=== PATIENT | male | born 1960 | race Caucasian/White ===

== ENCOUNTER → 2017-10-04 | Outpatient (CLI) | payer OTHER ==
--- NOTE | 2017-10-04 11:21 | XR ---
Left knee HISTORY: Left knee pain, trauma 3 views of the left knee Bone mineralization, joint spaces and alignment are maintained, exception of some mild joint space lo ss medial compartment. No fracture or dislocation. Mild marginal spurring medial compartment. Suprapa tellar increased density compatible joint effusion. IMPRESSION: Suspect mild osteoarthritis. Joint effusion. Consider knee MRI.
== END | disposition home or self-care (01) ==
LOC: RADXRMAIN 10:59
PROVIDERS: ATTEND Emergency Medicine
DX: M25.462 Effusion, left knee (principal)

== ENCOUNTER 2024-05-24 15:24 | Emergency (ER) | payer MEDICARE ==
--- NOTE | 2024-05-24 15:49 | ED ---
Wound/Laceration HPI - General Chief Complaint: Wound/Laceration Stated Complaint: R hand lac Time Seen by Provider: 05/24/24 15:41 Source: patient, RN notes reviewed Mode of arrival: ambulatory Limitations: no limitations - History of Present Illness Initial Comments: This is a 63-year-old male presenting for cut on right index finger x 20 minutes ago. Patient states he was working with a miter saw when he accidentally cut the back of his left index finger. States he wrapped finger and came immediately to ER. Denies other injury. States tetanus vaccination status is not up-to-date. Denies use of blood thinners. Onset/Timin -: minutes(s) Extremity Location: Right: Hand Place: home Patient Tetanus UTD: No Context: accidental, power tool use Associated Symptoms: pain - Related Data Previous Rx's Medication Instructions Recorded Cephalexin [Keflex] 500 mg PO Q6HR 1 Days #20 cap 05/24/24 Ibuprofen [Motrin] 800 mg PO Q8H PRN #30 tab 05/24/24 Mupirocin Calcium 2% Cream 1 applic TOPICAL TID #15 gm 05/24/24 [Bactroban Cream] Allergies Allergy/AdvReac Type Severity Reaction Status Date / Time No Known Allergies Allergy Verified 05/24/24 15:28 Review of Systems ROS Statement: Those systems with pertinent positive or pertinent negative responses have been documented in the HPI. ROS Other: All systems not noted in ROS Statement are negative. Past Medical History Past Medical History: No Reported History History of Any Multi-Drug Resistant Organisms: None Reported Past Surgical History: No Surgical Hx Reported Past Psychological History: No Psychological Hx Reported Smoking Status: Never smoker Past Alcohol Use History: Occasional Past Drug Use History: None Reported General Exam Limitations: no limitations General appearance: alert, in no apparent distress Head exam: Present: atraumatic, normocephalic, normal inspection Eye exam: Present: normal appearance, PERRL, EOMI. Absent: scleral icterus, conjunctival injection, periorbital swelling ENT exam: Present: normal exam, mucous membranes moist Neck exam: Present: normal inspection. Absent: tenderness, meningismus, lymphadenopathy Respiratory exam: Present: normal lung sounds bilaterally. Absent: respiratory distress, wheezes, rales, rhonchi, stridor Cardiovascular Exam: Present: regular rate, normal rhythm, normal heart sounds. Absent: systolic murmur, diastolic murmur, rubs, gallop, clicks GI/Abdominal exam: Present: soft, normal bowel sounds. Absent: distended, tenderness, guarding, rebound, rigid Extremities exam: Present: normal inspection, full ROM, normal capillary refill. Absent: tenderness, pedal edema, joint swelling, calf tenderness Right Shoulder Exam: Present: normal inspection, full ROM Upper Arm exam: Present: normal inspection, full ROM Elbow exam: Present: normal inspection, full ROM Forearm Wrist exam: Present: normal inspection, full ROM Hand Wrist exam: Present: full ROM, tenderness, laceration (7 cm deep vertical laceration of right index finger from MCP joint to PIP joint. No obvious foreign body. Neurovascular intact, capillary refill less than 2 seconds.) Vascular: Present: normal capillary refill Back exam: Present: normal inspection Neurological exam: Present: alert, oriented X3, CN II-XII intact Psychiatric exam: Present: normal affect, normal mood Skin exam: Present: warm, dry, intact, normal color. Absent: rash Course Vital Signs 05/24/24 15:25 Temperature 97.9 F Pulse Rate 67 Respiratory 20 Rate Blood Pressure 175/91 O2 Sat by Pulse 98 Oximetry Medical Decision Making - Medical Decision Making Was pt. sent in by a medical professional or institution (, PA, RESEARCH ADVISOR, urgent care, hospital, or alf...) When possible be specific @ -[No] Did you speak to anyone other than the patient for history (EMS, parent, family, police, friend...)? What history was obtained from this source @ -[No] Did you review nursing and triage notes (agree or disagree)? Why? @ -[I reviewed and agree with nursing and triage notes] Were old charts reviewed (outside hosp., previous admission, EMS record, old EKG, old radiological studies, urgent care reports/EKG's, alf records)? Report findings @ -[No old charts were reviewed] Differential Diagnosis (chest pain, altered mental status, abdominal pain women, abdominal pain men, vaginal bleeding, weakness, fever, dyspnea, syncope, headache, dizziness, GI bleed, back pain, seizure, CVA, palpatations, mental health, musculoskeletal)? @ -Differential Musculoskeletal Muscular strain, contusion, ligament sprain, fracture, arthritis, septic arthritis, bursitis, cellulitis, muscle spasm, nerve compression, DVT, arterial occlusion, herpes zoster, electrolyte abnormality, tumor.... This is not meant to be in all inclusive list EKG interpreted by me (3pts min.). @ -Not done X-rays interpreted by me (1pt min.). @ -[None done] CT interpreted by me (1pt min.). @ -[None done] U/S interpreted by me (1pt. min.). @ -[None done] What testing was considered but not performed or refused? (CT, X-rays, U/S, labs)? Why? @ -[None] What meds were considered but not given or refused? Why? @ -[None] Did you discuss the management of the patient with other professionals (professionals i.e. , PA, RESEARCH ADVISOR, lab, RT, psych nurse, social media senior associate, aircraft refueler, teacher, youth liaison officer, shelter case manager)? Give summary @ -[No] Was smoking cessation discussed for >3mins.? @ -[No] Was critical care preformed (if so, how long)? @ -[No] Were there social determinants of health that impacted care today? How? (Homelessness, low income, unemployed, alcoholism, drug addiction, transportation, low edu. Level, literacy, decrease access to med. care, correction, rehab)? @ -[No] Was there de-escalation of care discussed even if they declined (Discuss DNR or withdrawal of care, Hospice)? DNR status @ -[No] What co-morbidities impacted this encounter? (DM, HTN, Smoking, COPD, CAD, Cancer, CVA, ARF, Chemo, Hep., AIDS, mental health diagnosis, sleep apnea, morbid obesity)? @ -[None] Was patient admitted / discharged? Hospital course, mention meds given and route, prescriptions, significant lab abnormalities, going to OR and other pertinent info. @ -[hospital course] Undiagnosed new problem with uncertain prognosis? @ -[No] Drug Therapy requiring intensive monitoring for toxicity (Heparin, Nitro, Insulin, Cardizem)? @ -[No] Were any procedures done? @ -Suture of right index finger laceration under sterile conditions Diagnosis/symptom? @ -[default] Acute, or Chronic, or Acute on Chronic? @ -Acute Uncomplicated (without systemic symptoms) or Complicated (systemic symptoms)? @ -Uncomplicated Side effects of treatment? @ -[No] Exacerbation, Progression, or Severe Exacerbation? @ -[No] Poses a threat to life or bodily function? How? (Chest pain, [place], [place], pneumonia, PE, COPD, DKA, ARF, appy, cholecystitis, CVA, Diverticulitis, Homicidal, Suicidal, threat to staff... and all critical care pts) @ -[No] Disposition Clinical Impression: Laceration Disposition: HOME SELF-CARE Condition: Good Instructions (If sedation given, give patient instructions): Care For Your Stitches (ED) Additional Instructions: Clean twice daily with antibacterial soap and water along with dressing change. Follow-up with any medical facility in 7-10 days for suture removal Prescriptions: Mupirocin Calcium 2% Cream [Bactroban Cream] 1 applic TOPICAL TID #15 gm Cephalexin [Keflex] 500 mg PO Q6HR 1 Days #20 cap Ibuprofen [Motrin] 800 mg PO Q8H PRN #30 tab PRN Reason: Pain Is patient prescribed a controlled substance at d/c from ED?: No Referrals: Ankit Arauz MD [Primary Care Provider] - 1-2 days Nain Briones MD [STAFF PHYSICIAN] - 1-2 days Time of Disposition: 18:18
[2024-05-24] MEDS: KETOROLAC 15 MG/ML 1 ML VIAL IM STA (15:50)
[2024-05-24] MEDS: HYDROmorphone 0.5 MG/0.5 ML SYRINGE IM STA (15:51)
[2024-05-24] MEDS: DIPH,PERTUS(ACELL)TETVAC-LF 0.5 ML VIAL IM ONE (15:51)
--- NOTE | 2024-05-24 16:48 | XR ---
EXAMINATION TYPE: XR finger RT DATE OF EXAM: 05/24/2024 4:41 PM COMPARISON: None. CLINICAL INDICATION: Male, 63 years old with history of Index finger versus miter saw, pain TECHNIQUE: XR finger RT views are submitted. FINDINGS: Miter saw osseous defect is noted to involve the mid and distal proximal phalanx right second digit a s well as the distal aspect of the middle phalanx right second digit. Dorsal soft tissue injury is no charlene with small radiopaque soft tissue fragments noted. IMPRESSION: As above [facility], , 05/24/2024 4:46 PM
[2024-05-24] MEDS: LIDOCAINE 1% INJ 10MG/ML (20 ML MDV) SQ ONE (17:07)
[2024-05-24] MEDS: ceFAZolin 1,000 MG VIAL (IM USE) IM STA (18:16)
[2024-05-24 18:24] VITALS: BP 161/86; PULSE 65; RESP 18; TEMP 98.1
== END 2024-05-24 18:25 | disposition home or self-care (01) ==
LOC: EC 15:24
DX: S61.210A Laceration without foreign body of right index finger without damage to nail, initial encounter (principal); Z23 Encounter for immunization; W27.0XXA Contact with workbench tool, initial encounter; Y92.009 Unspecified place in unspecified non-institutional (private) residence as the place of occurrence of the external cause
CPT/HCPCS: 73140; 90715; 99283; 96372 ×3; 90471; J0690; J2003; J1885; J1171